=== PATIENT | male | born 1985 | race African-American/Black ===

== ENCOUNTER 2016-11-21 19:53 | Emergency (ER) | payer SELFPAY ==
[~2016-11-21] VITALS: Ht 182.9 cm; Wt 93.0 kg
[2016-11-21] MEDS ORDERED: SULF1TAB23 PO (20:16)
[2016-11-21 20:59] LABS: BILIRUBIN,URINE NEGATIVE (NEG); GLUCOSE,URINE NEGATIVE (NEG); NITRITE,URINE NEGATIVE (NEG); PROTEIN,URINE 100 mg/dL (NEG-TRACE)
[2016-11-21 21:06] LABS: BACTERIA,URINE 0 /HPF (0-FEW); RBC,URINE TNTC /HPF (0-2); SQUAMOUS EPITHELIAL CELL,UR FEW /LPF; WBC,URINE TNTC /HPF (0-4)
--- NOTE | 2016-11-21 21:26 | PHYS DOC ---
Past Medical History Past Medical History: UTI, Other Additional Past Medical Histor: STD Past Surgical History: No Surgical History Alcohol Use: None Drug Use: None Adult General Chief Complaint Chief Complaint: PAIN ON URINATION HPI HPI Patient is a 31 year old male who presents emergency Department today with complaint of suprapubic pain, dysuria and hematuria that began last week. Patient states that initially began experiencing dysuria with blood at the end of his urination. He states that he went to the local clinic and was evaluated for STDs and had a urinalysis performed. It is not known if there was a microscopic analysis done. He states that he was negative for an STD evaluation. He was diagnosed with a urinary tract infection and placed on Bactrim. Patient is currently on day 5 of his Bactrim and reports that he has persistently been experiencing increasing hematuria and dysuria. He denies flank pain or testicular pain or swelling. He denies any history of neurologic disorders or procedures performed. He states he is a nonsmoker. He denies fevers , chills, night sweats or unexplained loss of weight. He states he is a nonsmoker. He has no personal history of cancer. Review of Systems Review of Systems Constitutional: Denies fever or chills [] Eyes: Denies change in visual acuity, redness, or eye pain [] HENT: Denies nasal congestion or sore throat [] Respiratory: Denies cough or shortness of breath [] Cardiovascular: No additional information not addressed in HPI [] GI: Denies abdominal pain, nausea, vomiting, bloody stools or diarrhea [] : Denies dysuria or hematuria [] Musculoskeletal: Denies back pain or joint pain [] Integument: Denies rash or skin lesions [] Neurologic: Denies headache, focal weakness or sensory changes [] Endocrine: Denies polyuria or polydipsia [] Current Medications Current Medications Current Medications Medications (Trade) Dose Ordered Sig/Yamilka Start Time Stop Time Status Last Admin Dose Admin Ketorolac Tromethamine (Toradol) 30 mg 1X ONCE 11/21/16 22:00 11/21/16 22:01 DC 11/21/16 21:45 30 MG Sodium Chloride (Iv Sodium Chloride 0.9% 1000ml Bag) 1,000 ml @ 1,000 mls/hr Q1H 11/21/16 22:00 11/21/16 22:59 11/21/16 21:45 1,000 MLS/HR Allergies Allergies Allergies Coded Allergies Type Severity Reaction Last Updated Verified No Known Drug Allergies 11/21/16 No Physical Exam Physical Exam Constitutional: Well developed, well nourished,mild distress, non-toxic appearance. Patient cries out in pain when attempting to urinate. Patient did produce urine which was blood orange in color. There were small blood clots in the urine. HENT: Normocephalic, atraumatic, bilateral external ears normal, oropharynx moist, no oral exudates, nose normal. [] Eyes: PERRLA, EOMI, conjunctiva normal, no discharge. [] Neck: Normal range of motion, no tenderness, supple, no stridor. [] Cardiovascular:Heart rate regular rhythm, no murmur [] Lungs & Thorax: Bilateral breath sounds clear to auscultation [] Abdomen: Bowel sounds normal, soft, no masses, no pulsatile masses. Patient complains of mild suprapubic tenderness upon palpation. Skin: Warm, dry, no erythema, no rash. [] Back: No tenderness, no CVA tenderness. Extremities: No tenderness, no cyanosis, no clubbing, ROM intact, no edema. [] Neurologic: Alert and oriented X 3, normal motor function, normal sensory function, no focal deficits noted. [] Psychologic: Affect normal, judgement normal, mood normal. [] Current Patient Data Vital Signs Vital Signs Date Time Temp Pulse Resp B/P Pulse Ox O2 Delivery O2 Flow Rate FiO2 11/21/16 20:16 98.2 76 20 96 Room Air 98.2 Lab Values Laboratory Tests Test 11/21/16 20:50 11/21/16 21:37 Urine Collection Type Unknown Urine Color Red Urine Clarity Cloudy Urine pH 6.0 Urine Specific Robbins >=1.030 Urine Protein 100mg/dL (NEG-TRACE) Urine Glucose (UA) Negativemg/dL (NEG) Urine Ketones (Stick) Tracemg/dL (NEG) Urine Blood Large (NEG) Urine Nitrite Negative (NEG) Urine Bilirubin Negative (NEG) Urine Urobilinogen Dipstick 1.0mg/dL (0.2 mg/dL) Urine Leukocyte Esterase Large (NEG) Urine RBC Tntc/HPF (0-2) Urine WBC Tntc/HPF (0-4) Urine Squamous Epithelial Cells Few/LPF Urine Bacteria 0/HPF (0-FEW) Urine Mucus Mod/LPF White Blood Count 7.5x10^3/uL (4.0-11.0) Red Blood Count 5.28x10^6/uL (4.30-5.70) Hemoglobin 16.1g/dL (13.0-17.5) Hematocrit 48.2% (39.0-53.0) Mean Corpuscular Volume 91fL (79-100) Mean Corpuscular Hemoglobin 30pg (25-35) Mean Corpuscular Hemoglobin Concent 33g/dL (31-37) Red Cell Distribution Width 15.0% (11.5-14.5) H Platelet Count 198x10^3/uL (140-400) Neutrophils (%) (Auto) 32% (31-73) Lymphocytes (%) (Auto) 54% (24-48) H Monocytes (%) (Auto) 10% (0-9) H Eosinophils (%) (Auto) 3% (0-3) Basophils (%) (Auto) 1% (0-3) Neutrophils # (Auto) 2.4x10^3uL (1.8-7.7) Lymphocytes # (Auto) 4.0x10^3/uL (1.0-4.8) Monocytes # (Auto) 0.8x10^3/uL (0.0-1.1) Eosinophils # (Auto) 0.2x10^3/uL (0.0-0.7) Basophils # (Auto) 0.1x10^3/uL (0.0-0.2) Prothrombin Time 12.7SEC (11.7-14.0) Prothrombin Time INR 1.0 (0.8-1.1) Sodium Level 139mmol/L (136-145) Potassium Level 4.2mmol/L (3.5-5.1) Chloride Level 102mmol/L (98-107) Carbon Dioxide Level 29mmol/L (21-32) Anion Gap 8 (6-14) Blood Urea Nitrogen 18mg/dL (8-26) Creatinine 1.3mg/dL (0.7-1.3) Estimated GFR (Cockcroft-Gault) 77.9 BUN/Creatinine Ratio 14 (6-20) Glucose Level 88mg/dL (70-99) Calcium Level 9.6mg/dL (8.5-10.1) Total Bilirubin 0.3mg/dL (0.2-1.0) Aspartate Amino Transferase (AST) 19U/L (15-37) Alanine Aminotransferase (ALT) 25U/L (16-63) Alkaline Phosphatase 86U/L (46-116) Total Protein 8.0g/dL (6.4-8.2) Albumin 4.0g/dL (3.4-5.0) Albumin/Globulin Ratio 1.0 (1.0-1.7) Laboratory Tests 11/21/16 21:37 Laboratory Tests 11/21/16 21:37 EKG EKG [] Radiology/Procedures Radiology/Procedures [facility] [address] [place], [place] [id number] IMAGING REPORT Signed PATIENT: ANN NICHOLS ACCOUNT: [id number] : 1985 LOCATION: ER AGE: 31 SEX: M EXAM STATUS: REG ER ORD. PHYSICIAN: EDINSON MCRAE REASON: dysuria, hematuria, suprapubic pain PROCEDURE: ABDOMEN PELVIS WO CONTRAST INDICATION: 31-year-old male with hematuria and dysuria for 5 days, suprapubic pain. COMPARISON: None TECHNIQUE: Axial CT images obtained through the abdomen and pelvis without the use of intravenous contrast. Coronal and sagittal reformats are provided. One or more of the following individualized dose reduction techniques were utilized for this examination: 1. Automated exposure control; 2. Adjustment of the mA and/or kV according to patient size; 3. Use of iterative reconstruction technique. FINDINGS: Visualized lung bases appear clear. Detailed evaluation of intra-abdominal and pelvic organs and vascular structures is limited secondary to lack of IV contrast. Within this limitation, the liver, spleen, gallbladder, pancreas, adrenal glands and bilateral kidneys demonstrate no focal abnormality. No urolithiasis, hydronephrosis or hydroureter is seen. The GI tract demonstrates no dilated bowel loops to suggest obstruction. Appendix is normal in caliber and air-filled. The urinary bladder is mostly decompressed and not well evaluated. No intra-abdominal or pelvic free fluid, free air or significant lymphadenopathy is seen. A 4 millimeter calculus is present overlying the prostate just to the left of midline, likely representing a prostatic calcification rather than a calculus within the prostatic urethra. The aorta is normal in caliber. Visualized osseous structures and overlying soft tissues demonstrate no acute or suspicious finding. IMPRESSION: No acute intra-abdominal or pelvic process seen on this noncontrast study. Electronically signed by: Zakia Haas (Nov 21, 2016 22:37:20) Course & Med Decision Making Course & Med Decision Making Patient's had an uncomplicated stay here in the emergency department. I discussed with him and CT scan findings as well as laboratory test results. Patient verbalizes understanding of this. Patient verbalizes understanding of any stiff follow-up with a urologist. I will provide him with a urologist phone number. He states he will call in the morning to schedule follow-up appointment. Dragon Disclaimer Dragon Disclaimer This electronic medical record was generated, in whole or in part, using a voice recognition dictation system. Departure Departure Impression: Primary Impression: Cystitis Disposition: HOME, SELF-CARE Condition: IMPROVED Referrals: NO PCP (PCP) ULI BONILLA DO Patient Instructions: Interstitial Cystitis Additional Instructions: 1. The CT scan of your abdomen and pelvis today is normal. As discussed, your kidney function is normal as well. There is no evidence of any blood clotting problems. There is no evidence of bacteria in your urine indicating an infection. 2. Review the discharge instructions provided for self-care and reasons to return to the emergency department. 3. Take the medication as prescribed. 4. Call the urologist phone number listed in the paperwork in the morning to schedule follow-up appointment. Scripts Hydrocodone/Apap 5-325 ([place] 5-325 Tablet)1 Each Tablet1 Tab PO PRN Q6HRS PRN PAIN #10 TAB Ref 0 Prov:EDINSON MCRAE 11/21/16 Phenazopyridine Hcl (Pyridium)200 Mg [id number] Mg PO TID urinary discomfort #9 TAB Prov:EDINSON MCRAE 11/21/16 EDINSON MCRAE Nov 21, 2016 21:26
[2016-11-21 21:50] LABS: BASO # 0.1 x10^3/uL (0.0-0.2); BASO % 1 % (0-3); EOS % 3 % (0-3); HEMATOCRIT 48.2 % (39.0-53.0); HEMOGLOBIN 16.1 g/dL (13.0-17.5); LYMPH % 54 % (24-48); MEAN CORPUSCULAR HEMOGLOBIN 30 pg (25-35); MEAN CORPUSCULAR HGB CONC 33 g/dL (31-37); MEAN CORPUSCULAR VOLUME 91 fL (79-100); MONO % 10 % (0-9); NEUT % 32 % (31-73); PLATELET COUNT 198 x10^3/uL (140-400); RED BLOOD COUNT 5.28 x10^6/uL (4.30-5.70); WHITE BLOOD COUNT 7.5 x10^3/uL (4.0-11.0)
[2016-11-21 21:57] LABS: PROTHROMBIN TIME PATIENT 12.7 SEC (11.7-14.0)
[2016-11-21 21:59] LABS: CALCIUM 9.6 mg/dL (8.5-10.1); CREATININE 1.3 mg/dL (0.7-1.3); GFR 77.9; POTASSIUM 4.2 mmol/L (3.5-5.1)
[2016-11-21] MEDS ORDERED: KETOROLAC TROMETHAMINE 30 MG/ML SYRINGE. IV ONE (22:00)
[2016-11-21] MEDS ORDERED: IV NORMAL SALINE 1000ML BAG 1,000 ML IV SCH (22:00)
[2016-11-21 22:05] LABS: TOTAL BILIRUBIN 0.3 mg/dL (0.2-1.0)
--- NOTE | 2016-11-21 22:39 | RAD ---
INDICATION: 31-year-old male with hematuria and dysuria for 5 days, suprapubic pain. COMPARISON: None TECHNIQUE: Axial CT images obtained through the abdomen and pelvis without the use of intravenous contrast. Coronal and sagittal reformats are provided. One or more of the following individualized dose reduction techniques were utilized for this examination: 1. Automated exposure control; 2. Adjustment of the mA and/or kV according to patient size; 3. Use of iterative reconstruction technique. FINDINGS: Visualized lung bases appear clear. Detailed evaluation of intra-abdominal and pelvic organs and vascular structures is limited secondary to lack of IV contrast. Within this limitation, the liver, spleen, gallbladder, pancreas, adrenal glands and bilateral kidneys demonstrate no focal abnormality. No urolithiasis, hydronephrosis or hydroureter is seen. The GI tract demonstrates no dilated bowel loops to suggest obstruction. Appendix is normal in caliber and air-filled. The urinary bladder is mostly decompressed and not well evaluated. No intra-abdominal or pelvic free fluid, free air or significant lymphadenopathy is seen. A 4 millimeter calculus is present overlying the prostate just to the left of midline, likely representing a prostatic calcification rather than a calculus within the prostatic urethra. The aorta is normal in caliber. Visualized osseous structures and overlying soft tissues demonstrate no acute or suspicious finding. IMPRESSION: No acute intra-abdominal or pelvic process seen on this noncontrast study. Electronically signed by: Zakia Haas (Nov 21, 2016 22:37:20)
[2016-11-21] MEDS ORDERED: PHEN-318 PO (22:54)
[2016-11-21] MEDS ORDERED: HYDR-971 PO (22:54)
[2016-11-21 23:00] VITALS: BP 152/78
== END 2016-11-21 23:03 | disposition home or self-care (01) ==
LOC: ER 19:53
DX: N30.90 Cystitis, unspecified without hematuria (principal); Z87.440 Personal history of urinary (tract) infections
CPT/HCPCS: 36415; 74176; 80053; 81001; 85027; 85610; 87086; 87491; 87591; 96361; 96374; 99285; J1885; J7030

== ENCOUNTER 2017-06-08 21:11 | Emergency (ER) | payer SELFPAY ==
[~2017-06-08 21:11] MED LIST: HYDR-971 PO; PHEN-318 PO; SULF1TAB23 PO
[2017-06-08 21:12] VITALS: BP 143/80
--- NOTE | 2017-06-08 21:32 | PHYS DOC ---
Past Medical History Past Medical History: UTI, Other Additional Past Medical Histor: STD Past Surgical History: No Surgical History Alcohol Use: None Drug Use: None Adult General Chief Complaint Chief Complaint: URINARY FREQUENCY HPI HPI Patient is a 32 year old male presents to the emergency department for "a urine check". Patient reports no urinary symptoms. He does state he is sexually active with multiple partners but has no dysuria, no discharge from the urethra , no testicular pain. Review of Systems Review of Systems Constitutional: Denies fever or chills [] Eyes: Denies change in visual acuity, redness, or eye pain [] HENT: Denies nasal congestion or sore throat [] Respiratory: Denies cough or shortness of breath [] Cardiovascular: No additional information not addressed in HPI [] GI: Denies abdominal pain, nausea, vomiting, bloody stools or diarrhea [] : Denies dysuria or hematuria [] Musculoskeletal: Denies back pain or joint pain [] Integument: Denies rash or skin lesions [] Neurologic: Denies headache, focal weakness or sensory changes [] Endocrine: Denies polyuria or polydipsia [] Allergies Allergies Allergies Coded Allergies Type Severity Reaction Last Updated Verified No Known Drug Allergies 11/21/16 No Physical Exam Physical Exam Constitutional: Well developed, well nourished, no acute distress, non-toxic appearance. [] HENT: Normocephalic, atraumatic, bilateral external ears normal, oropharynx moist, no oral exudates, nose normal. [] Eyes: PERRLA, EOMI, conjunctiva normal, no discharge. [] Neck: Normal range of motion, no tenderness, supple, no stridor. [] Cardiovascular:Heart rate regular rhythm, no murmur [] Lungs & Thorax: Bilateral breath sounds clear to auscultation [] Abdomen: Bowel sounds normal, soft, no tenderness, no masses, no pulsatile masses. : deferred[] Skin: Warm, dry, no erythema, no rash. [] Back: No tenderness, no CVA tenderness. [] Extremities: No tenderness, no cyanosis, no clubbing, ROM intact, no edema. [] Neurologic: Alert and oriented X 3, normal motor function, normal sensory function, no focal deficits noted. [] Psychologic: Affect normal, judgement normal, mood normal. [] Current Patient Data Vital Signs Vital Signs Date Time Temp Pulse Resp B/P (MAP) Pulse Ox O2 Delivery O2 Flow Rate FiO2 06/08/17 21:12 98.5 75 20 98 Room Air 98.5 Lab Values Laboratory Tests Test 06/08/17 21:40 Urine Collection Type Unknown Urine Color Yellow Urine Clarity Clear Urine pH 6.0 Urine Specific Murray 1.025 Urine Protein Negative mg/dL (NEG-TRACE) Urine Glucose (UA) Negative mg/dL (NEG) Urine Ketones (Stick) Negative mg/dL (NEG) Urine Blood Negative (NEG) Urine Nitrite Negative (NEG) Urine Bilirubin Negative (NEG) Urine Urobilinogen Dipstick 0.2 mg/dL (0.2 mg/dL) Urine Leukocyte Esterase Negative (NEG) Urine RBC Occ /HPF (0-2) Urine WBC 5-10 /HPF (0-4) Urine Squamous Epithelial Cells Few /LPF Urine Amorphous Sediment Present /HPF Urine Bacteria 0 /HPF (0-FEW) Urine Mucus Mod /LPF EKG EKG [] Radiology/Procedures Radiology/Procedures [] Course & Med Decision Making Course & Med Decision Making Pertinent Labs and Imaging studies reviewed. (See chart for details) []UA with moderate leukocytes. Patient concerned about having an STD although he is asymptomatic. Urine GC and chlamydia pending. At this time patient will be prescribed Suprax, Zithromax, Flagyl because of his risky sexual behavior. Dragon Disclaimer Dragon Disclaimer This electronic medical record was generated, in whole or in part, using a voice recognition dictation system. Departure Departure Impression: Primary Impression: Cystitis Additional Impression: Risky sexual behavior Disposition: 01 HOME, SELF-CARE Condition: STABLE Referrals: NO PCP (PCP) [facility] Patient Instructions: Sexually Transmitted Disease, [id number] Scripts Azithromycin (ZITHROMAX) 500 Mg Tablet 2 TAB PO ONCE, #2 TAB Prov: GONZALEZ REEVES [employer] P[employer]ER 06/08/17 Metronidazole (FLAGYL) 500 Mg Tablet 4 TAB PO now, #4 TAB Prov: GONZALEZ REEVES [employer] 06/08/17 Cefixime (SUPRAX) 200 Mg/5 Ml Susp.recon 200 MG PO now, #1 MISC Prov: GONZALEZ REEVES [employer] 06/08/17 Problem Qualifiers GONZALEZ REEVES [employer] PICKER Jun 08, 2017 21:32
[2017-06-08 21:48] LABS: BILIRUBIN,URINE NEGATIVE (NEG); GLUCOSE,URINE NEGATIVE (NEG); NITRITE,URINE NEGATIVE (NEG); PROTEIN,URINE NEGATIVE (NEG-TRACE); UROBILINOGEN,URINE 0.2 mg/dL (0.2 mg/dL)
[2017-06-08 21:56] LABS: BACTERIA,URINE 0 /HPF (0-FEW); RBC,URINE OCC /HPF (0-2); SQUAMOUS EPITHELIAL CELL,UR FEW /LPF
[2017-06-08] MEDS ORDERED: AZIT500T PO (22:16)
[2017-06-08] MEDS ORDERED: METR500T PO (22:16)
[2017-06-08] MEDS ORDERED: CEFI200S PO (22:16)
== END 2017-06-08 22:44 | disposition home or self-care (01) ==
LOC: ER 21:11
DX: N30.90 Cystitis, unspecified without hematuria (principal)
CPT/HCPCS: 81001; 87086; 87491; 87591; 99284

== ENCOUNTER 2017-08-31 10:50 | Emergency (ER) | payer SELFPAY ==
[~2017-08-31] VITALS: Ht 185.4 cm; Wt 95.3 kg
[~2017-08-31 10:50] MED LIST changes: +AZIT500T PO; +CEFI200S PO; +METR500T PO
[2017-08-31 10:55] VITALS: BP 131/77
[2017-08-31 11:34] LABS: BILIRUBIN,URINE NEGATIVE (NEG); GLUCOSE,URINE NEGATIVE (NEG); NITRITE,URINE NEGATIVE (NEG); PROTEIN,URINE NEGATIVE (NEG-TRACE); UROBILINOGEN,URINE 0.2 mg/dL (0.2 mg/dL)
[2017-08-31 11:54] LABS: BACTERIA,URINE 0 /HPF (0-FEW); RBC,URINE 0 /HPF (0-2); SQUAMOUS EPITHELIAL CELL,UR FEW /LPF; WBC,URINE 0 /HPF (0-4)
--- NOTE | 2017-08-31 16:26 | PHYS DOC ---
Past Medical History Past Medical History: UTI, Other Additional Past Medical Histor: STD Past Surgical History: No Surgical History Alcohol Use: None Drug Use: None Adult General Chief Complaint Chief Complaint: PAIN ON URINATION [facility] Patient is a 32 year old male who presents with an uncomfortable sensation when he urinates. The patient says he does not have pain with urination, frequency or urgency. He says it just feels funny. He said he really can't describe the sensation but states that at times it feels pleasurable. He denies high risk sexual behaviors although he states that he could have been exposed to an STD. He denies any rashes, discharge, sores or pain. He was seen at [facility] a month or so ago for the same symptoms where he was treated with antibiotics and discharged. Review of Systems Review of Systems Constitutional: Denies fever or chills [] Respiratory: Denies cough or shortness of breath [] Cardiovascular: No additional information not addressed in [facility] [] GI: Denies abdominal pain, nausea, vomiting, bloody stools or diarrhea [] : See history of present illness Musculoskeletal: Denies back pain or joint pain [] Integument: Denies rash or skin lesions [] Neurologic: Denies headache, focal weakness or sensory changes [] Endocrine: Denies polyuria or polydipsia [] All other systems were reviewed and found to be within normal limits, except as documented in this note. Allergies Allergies Allergies Coded Allergies Type Severity Reaction Last Updated Verified No Known Drug Allergies 11/21/16 No Physical Exam Physical Exam Constitutional: Well developed, well nourished, no acute distress, non-toxic appearance. [] Cardiovascular:Heart rate regular rhythm, no murmur [] Lungs & Thorax: Bilateral breath sounds clear to auscultation [] Abdomen: Bowel sounds normal, soft, no tenderness, no masses, no pulsatile masses. [] Skin: Warm, dry, no erythema, no rash. [] Back: No tenderness, no CVA tenderness. [] Extremities: No tenderness, no cyanosis, no clubbing, ROM intact, no edema. [] Neurologic: Alert and oriented X 3, normal motor function, normal sensory function, no focal deficits noted. [] Psychologic: Affect normal, judgement normal, mood normal. [] Current Patient Data Vital Signs Vital Signs Date Time Temp Pulse Resp B/P (MAP) Pulse Ox O2 Delivery O2 Flow Rate FiO2 08/31/17 10:55 98.3 64 16 96 Room Air 98.3 Lab Values Laboratory Tests Test 08/31/17 11:00 Urine Collection Type Unknown Urine Color Yellow Urine Clarity Clear Urine pH 7.0 Urine Specific Randall 1.020 Urine Protein Negative mg/dL (NEG-TRACE) Urine Glucose (UA) Negative mg/dL (NEG) Urine Ketones (Stick) Negative mg/dL (NEG) Urine Blood Negative (NEG) Urine Nitrite Negative (NEG) Urine Bilirubin Negative (NEG) Urine Urobilinogen Dipstick 0.2 mg/dL (0.2 mg/dL) Urine Leukocyte Esterase Negative (NEG) Urine RBC 0 /HPF (0-2) Urine WBC 0 /HPF (0-4) Urine Squamous Epithelial Cells Few /LPF Urine Bacteria 0 /HPF (0-FEW) Urine Mucus Mod /LPF EKG EKG [] Radiology/Procedures Radiology/Procedures [] Course & Med Decision Making Course & Med Decision Making Pertinent Labs and Imaging studies reviewed. (See chart for details) []1. Concern for STD exposure The patient's urine was free of bacteria. The patient is being tested for gonorrhea and chlamydia and we will call with the results of those tests when they come back. I declined to place the patient on antibiotics given his recent antibiotic use. He was encouraged to contact his PCP for further evaluation and referral to a urologist for further investigation of his symptoms. Dragon Disclaimer Dragon Disclaimer This electronic medical record was generated, in whole or in part, using a voice recognition dictation system. Departure Departure Impression: Primary Impression: Concern about STD in male without diagnosis Disposition: HOME, SELF-CARE Condition: STABLE Patient Instructions: Safe Sex Additional Instructions: If you continue to have an abnormal feeling with urination please follow-up with your primary care provider for referral to urology. We will call with results of your STD screening when those return in 2-3 days. JOSE ANTONIO MONSON APRN Aug 31, 2017 16:26
== END 2017-08-31 12:32 | disposition home or self-care (01) ==
LOC: ER 10:50
DX: Z11.3 Encounter for screening for infections with a predominantly sexual mode of transmission (principal); Z87.440 Personal history of urinary (tract) infections
CPT/HCPCS: 81001; 87491; 87591; 99284

== ENCOUNTER 2018-12-14 11:13 | Emergency (ER) | payer SELFPAY ==
[~2018-12-14] VITALS: Ht 182.9 cm; Wt 95.3 kg
[~2018-12-14 11:13] MED LIST changes: +HYDR-3164 PO; -HYDR-971 PO
[2018-12-14 11:26] VITALS: BP 150/106
--- NOTE | 2018-12-14 11:39 | PHYS DOC ---
Past Medical History Past Medical History: UTI, Other Additional Past Medical Histor: STD Past Surgical History: No Surgical History Alcohol Use: None Drug Use: None Adult General Chief Complaint Chief Complaint: MALE UROGENITAL PROBLEMS HPI HPI Patient is a 33 year old male with previous history of STDs who presents to the ED today complaining of irritation at the end of urination for the last 2 weeks. Patient denies any hematuria. Denies any urgency or frequency. He states he stopped at the clinic today to be checked out, he states he was told they will not have results for STD today hence he left the facility an came to the ED. He is requesting we do a STD check now and give him results. Patient was informed the gonorrhea and chlamydia are send outs and he will not get results today. He states he has been seen in the ED multiple times with similar symptoms and can not afford to f/u with urologist. Review of Systems Review of Systems Constitutional: Denies fever or chills [] Eyes: Denies change in visual acuity, redness, or eye pain [] HENT: Denies nasal congestion or sore throat [] Respiratory: Denies cough or shortness of breath [] Cardiovascular: No additional information not addressed in HPI [] GI: Denies abdominal pain, nausea, vomiting, bloody stools or diarrhea [] : Reports penile irritation during voiding. Denies dysuria or hematuria [] Musculoskeletal: Denies back pain or joint pain [] Integument: Denies rash or skin lesions [] Neurologic: Denies headache, focal weakness or sensory changes [] All other systems were reviewed and found to be within normal limits, except as documented in this note. Current Medications Current Medications Current Medications Medications (Trade) Dose Ordered Sig/Yamilka Start Time Stop Time Status Last Admin Dose Admin Azithromycin (Zithromax) 1,000 mg 1X ONCE 12/14/18 12:45 12/14/18 12:46 DC Ceftriaxone Sodium (Rocephin Im) 250 mg 1X ONCE 12/14/18 12:45 12/14/18 12:46 DC Doxycycline Hyclate (Vibra-Tab) 100 mg 1X ONCE 12/14/18 12:45 12/14/18 12:46 DC Allergies Allergies Allergies Coded Allergies Type Severity Reaction Last Updated Verified No Known Drug Allergies 11/21/16 No Physical Exam Physical Exam Constitutional: Well developed, well nourished, no acute distress, non-toxic appearance. [] HENT: Normocephalic, atraumatic, bilateral external ears normal, oropharynx moist, no oral exudates, nose normal. [] Eyes: PERRLA, EOMI, conjunctiva normal, no discharge. [] Neck: Normal range of motion, no tenderness, supple, no stridor. [] Cardiovascular:Heart rate regular rhythm, no murmur [] Lungs & Thorax: Bilateral breath sounds clear to auscultation [] Abdomen: Bowel sounds normal, soft, no tenderness, no masses, no pulsatile masses. [] Male - declined Skin: Warm, dry, no erythema, no rash. [] Back: No tenderness, no CVA tenderness. [] Extremities: No tenderness, no cyanosis, no clubbing, ROM intact, no edema. [] Neurologic: Alert and oriented X 3, normal motor function, normal sensory function, no focal deficits noted. [] Psychologic: Affect normal, judgement normal, mood normal. [] Current Patient Data Vital Signs Vital Signs Date Time Temp Pulse Resp B/P (MAP) Pulse Ox O2 Delivery O2 Flow Rate FiO2 12/14/18 11:26 98.1 72 16 150/106 (121) 99 Room Air 98.1 Lab Values Laboratory Tests Test 12/14/18 11:20 Urine Collection Type Clean catch Urine Color Yellow Urine Clarity Clear Urine pH 6.0 Urine Specific [place] 1.015 Urine Protein Negative mg/dL (NEG-TRACE) Urine Glucose (UA) Negative mg/dL (NEG) Urine Ketones (Stick) Negative mg/dL (NEG) Urine Blood Negative (NEG) Urine Nitrite Negative (NEG) Urine Bilirubin Negative (NEG) Urine Urobilinogen Dipstick 0.2 mg/dL (0.2 mg/dL) Urine Leukocyte Esterase Trace (NEG) Urine RBC Occ /HPF (0-2) Urine WBC 5-10 /HPF (0-4) Urine Squamous Epithelial Cells Few /LPF Urine Bacteria Few /HPF (0-FEW) Urine Mucus Marked /LPF Urine Opiates Screen Neg (NEG) Urine Methadone Screen Neg (NEG) Urine Barbiturates Neg (NEG) Urine Phencyclidine Screen Neg (NEG) Urine Amphetamine/Methamphetamine Neg (NEG) Urine Benzodiazepines Screen Neg (NEG) Urine Cocaine Screen Neg (NEG) Urine Cannabinoids Screen Neg (NEG) Urine Ethyl Alcohol Neg (NEG) EKG EKG [] Radiology/Procedures Radiology/Procedures [] Course & Med Decision Making Course & Med Decision Making Pertinent Labs and Imaging studies reviewed. (See chart for details) This is a 33-year-old male patient presenting to the ED today complaining of penile irritation when he is voiding that has been going on for 2 weeks. Patient denies any concerns for STDs though he has been documented previously as having multiple partners. He has been treated for STDs multiple times in the ED Urine positive for trace amount of leukocytes WBC 5-10. Patient got aggressive when we informed him we do not have gonorrhea and chlamydia results. He states he went to another facility before coming to us and they could not give him results and either. Informed patient gonorrhea and chlamydia test are send outs and we do not have results now. Informed patient will get results in the next 3 days only if they're positive. He now states he wants to be treated. Informed patient we can treat him in the ED and Encouraged patient the need to use protection at all times and have his partners get treated. Informed patient has been seen in the ED multiple times for STD concern and I request he follows up with the health department as well as a urologist. He states he will never see a urologist because they want $250 from him and he does not have the money or medical insurance. Patient was given azithromycin and Rocephin in the ED. Discharged with doxycycline. Dragon Disclaimer Dragon Disclaimer This electronic medical record was generated, in whole or in part, using a voice recognition dictation system. Departure Departure Impression: Primary Impression: Cystitis Disposition: HOME, SELF-CARE Condition: STABLE Referrals: NO PCP (PCP) Also follow up with the health department JOCELIN CARBAJAL MD follow up in 1-2 weeks Patient Instructions: Dysuria-Brief Additional Instructions: You were evaluated in the emergency room, we highly encourage you to continue following up with the health department as well as a urologist. Scripts Doxycycline Monohydrate (DOXYCYCLINE MONOHYDRATE) 100 Mg Capsule 1 CAP PO BID, #14 CAP Prov: LEOBARDOSARAYEZEQUIEL APRN 12/14/18 EZEQUIEL COSTELLO APRN Dec 14, 2018 11:39
[2018-12-14 11:44] LABS: BILIRUBIN,URINE NEGATIVE (NEG); CLARITY,URINE CLEAR; COLOR,URINE YELLOW; NITRITE,URINE NEGATIVE (NEG); PROTEIN,URINE NEGATIVE (NEG-TRACE); UROBILINOGEN,URINE 0.2 mg/dL (0.2 mg/dL)
[2018-12-14 11:48] LABS: BARBITURATES NEG (NEG); BENZODIAZEPINES NEG (NEG); CANNABINOIDS NEG (NEG); COCAINE NEG (NEG); METHADONE NEG (NEG); OPIATES NEG (NEG); PHENCYCLIDINE NEG (NEG)
[2018-12-14 11:49] LABS: AMPHETAMINE/METHAMPHETAMINE NEG (NEG)
[2018-12-14 11:52] LABS: BACTERIA,URINE FEW /HPF (0-FEW); SQUAMOUS EPITHELIAL CELL,UR FEW /LPF
[2018-12-14 11:53] LABS: RBC,URINE OCC /HPF (0-2)
[2018-12-14] MEDS ORDERED: AZITHROMYCIN 250 MG TABLET. PO ONE (12:45)
[2018-12-14] MEDS ORDERED: cefTRIAXone IM 250 MG VIAL IM ONE (12:45)
[2018-12-14] MEDS ORDERED: DOXYCYCLINE HYCLATE 100 MG TABLET PO ONE (12:45)
[2018-12-14] MEDS ORDERED: DOXY100C14 PO (12:55)
== END 2018-12-14 13:14 | disposition home or self-care (01) ==
LOC: ER 11:13
DX: N30.90 Cystitis, unspecified without hematuria (principal)
CPT/HCPCS: 80307; 81001; 87086; 87491; 87591; 96372; 99283; J0696; Q0144

== ENCOUNTER 2019-02-08 11:05 | Emergency (ER) | payer SELFPAY ==
[~2019-02-08] VITALS: Ht 185.4 cm; Wt 95.3 kg
[~2019-02-08 11:05] MED LIST changes: +DOXY100C14 PO
[2019-02-08] MEDS ORDERED: CYCLOBENZAPRINE 10 MG TABLET. PO ONE (11:45)
[2019-02-08] MEDS ORDERED: HYDROcodone/APAP 5/325MG 1 TAB TABLET PO ONE (11:45)
--- NOTE | 2019-02-08 12:27 | RAD ---
Exam:Left ribs with PA chest Date: 02/08/2019 11:33 AM Comparison: No prior Indication: Left lateral chest wall pain Findings/ Impression: The heart is not enlarged. Mediastinal and hilar contours are normal. No focal parenchymal airspace opacity. No pleural effusion or pneumothorax. AP, Oblique and Spot images of the left are negative for acute displaced rib fracture. Negative focal pleural elevation. Symmetrical intercostal spacing. It is of note that an acute non-displaced rib fracture can be in-apparent on initial post-trauma imaging. Electronically signed by: Paulie Rincon MD (02/08/2019 12:24 PM) [facility]
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
[2019-02-08 13:10] VITALS: BP 128/82
[2019-02-08] MEDS ORDERED: HYDR-3164 PO (13:12)
[2019-02-08] MEDS ORDERED: ORPH100T PO (13:12)
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
== END 2019-02-08 13:44 | disposition home or self-care (01) ==
LOC: ER 11:05
DX: S20.212A Contusion of left front wall of thorax, initial encounter (principal); M79.602 Pain in left arm; V43.52XA Car driver injured in collision with other type car in traffic accident, initial encounter; Y93.89 Activity, other specified; Y92.410 Unspecified street and highway as the place of occurrence of the external cause; Y99.8 Other external cause status
CPT/HCPCS: 71101; 73060; 99284

== ENCOUNTER 2020-02-25 13:09 | Emergency (ER) | payer SELFPAY ==
[~2020-02-25] VITALS: Ht 185.4 cm; Wt 86.3 kg
[~2020-02-25 13:09] MED LIST changes: +ORPH100T PO
[2020-02-25 13:10] VITALS: BP 137/81
[2020-02-25 13:36] LABS: BILIRUBIN,URINE NEGATIVE (NEG); CLARITY,URINE CLEAR; COLOR,URINE YELLOW; NITRITE,URINE NEGATIVE (NEG); PROTEIN,URINE NEGATIVE (NEG-TRACE); UROBILINOGEN,URINE 0.2 mg/dL (0.2 mg/dL)
[2020-02-25 13:53] LABS: BACTERIA,URINE 0 /HPF (0-FEW); RBC,URINE 0 /HPF (0-2); SQUAMOUS EPITHELIAL CELL,UR FEW /LPF
[2020-02-25] MEDS ORDERED: cefTRIAXone IM 250 MG VIAL IM ONE (14:15)
[2020-02-25] MEDS ORDERED: METR500T PO (14:15)
[2020-02-25] MEDS ORDERED: AZITHROMYCIN 250 MG TABLET. PO ONE (14:15)
--- NOTE | 2020-02-25 14:16 | PHYS DOC ---
Past Medical History Past Medical History: No Pertinent History Additional Past Medical Histor: STD Past Surgical History: No Surgical History Smoking Status: Former Smoker Alcohol Use: None Drug Use: None General Adult EDM: Chief Complaint: PAIN ON URINATION HPI: HPI: Patient is a 35 year old male who presented to ER today for evaluation of burning with urination. Patient is sexually active, he would like to be treated for STD. Patient denies any penile discharge, no fever, no abdominal pain, no nausea vomiting. Review of Systems: Review of Systems: Constitutional: Denies fever or chills. [] Eyes: Denies change in visual acuity. [] HENT: Denies nasal congestion or sore throat. [] Respiratory: Denies cough or shortness of breath. [] Cardiovascular: Denies chest pain or edema. [] GI: Denies abdominal pain, nausea, vomiting, bloody stools or diarrhea. [] : Positive for dysuria Musculoskeletal: Denies back pain or joint pain. [] Integument: Denies rash. [] Neurologic: Denies headache, focal weakness or sensory changes. [] Endocrine: Denies polyuria or polydipsia. [] Lymphatic: Denies swollen glands. [] Psychiatric: Denies depression or anxiety. [] Heart Score: Risk Factors: Risk Factors: DM, Current or recent (<one month) smoker, HTN, HLP, family history of CAD, obesity. Risk Scores: Score 0 - 3: 2.5% MACE over next 6 weeks - Discharge Home Score 4 - 6: 20.3% MACE over next 6 weeks - Admit for Clinical Observation Score 7 - 10: 72.7% MACE over next 6 weeks - Early Invasive Strategies Current Medications: Current Medications Medications (Trade) Dose Ordered Sig/[facility] Start Time Stop Time Status Last Admin Dose Admin Azithromycin (Zithromax) 1,000 mg 1X ONCE 02/25/20 14:15 02/25/20 14:16 Ceftriaxone Sodium (Rocephin Im) 250 mg 1X ONCE 02/25/20 14:15 02/25/20 14:16 Allergies: Allergies: Allergies Coded Allergies Type Severity Reaction Last Updated Verified No Known Drug Allergies 11/21/16 No Physical Exam: PE: Constitutional: Well developed, well nourished, no acute distress, non-toxic appearance. [] HENT: Normocephalic, atraumatic, bilateral external ears normal, nose normal. [] Eyes: PERRLA, EOMI, conjunctiva normal, no discharge. [] Neck: Normal range of motion, no tenderness, supple, no stridor. [] Abdomen: Bowel sounds normal, soft, no tenderness, no masses, no pulsatile masses. [] Skin: Warm, dry, no erythema, no rash. [] Neurologic: Alert and oriented X 3, normal motor function, normal sensory function, no focal deficits noted. [] Psychologic: Affect normal, judgement normal, mood normal. [] Current Patient Data: Labs: Laboratory Tests Test 02/25/20 13:20 Urine Collection Type Unknown Urine Color Yellow Urine Clarity Clear Urine pH 7.0 (<5.0-8.0) Urine Specific [place] 1.020 (1.000-1.030) Urine Protein Negative mg/dL (NEG-TRACE) Urine Glucose (UA) Negative mg/dL (NEG) Urine Ketones (Stick) Negative mg/dL (NEG) Urine Blood Negative (NEG) Urine Nitrite Negative (NEG) Urine Bilirubin Negative (NEG) Urine Urobilinogen Dipstick 0.2 mg/dL (0.2 mg/dL) Urine Leukocyte Esterase Small (NEG) Urine RBC 0 /HPF (0-2) Urine WBC 1-4 /HPF (0-4) Urine Squamous Epithelial Cells Few /LPF Urine Bacteria 0 /HPF (0-FEW) Urine Mucus Mod /LPF Vital Signs: Vital Signs Date Time Temp Pulse Resp B/P (MAP) Pulse Ox O2 Delivery O2 Flow Rate FiO2 02/25/20 13:10 98.3 74 20 137/81 (99) 100 Room Air 98.3 EKG: EKG: [] Radiology/Procedures: Radiology/Procedures: [] Course & Med Decision Making: Course & Med Decision Making Pertinent Labs and Imaging studies reviewed. (See chart for details) [] Dragon Disclaimer: Dragon Disclaimer: This electronic medical record was generated, in whole or in part, using a voice recognition dictation system. Departure Departure Impression: Primary Impression: Possible exposure to STD Additional Impression: Dysuria Disposition: HOME, SELF-CARE Condition: STABLE Referrals: NO PCP (PCP) NO sexual intercourse until your sexual partner being treated for STD as well. Patient Instructions: Dysuria Scripts Metronidazole (FLAGYL) 500 Mg Tablet 1 TAB PO BID, #14 TAB Prov: MONCADA,PETER T DO 02/25/20 Justicifation of Admission Dx: Justifications for Admission: Justification of Admission Dx: N/A ANAT MONCADA DO Feb 25, 2020 14:16
== END 2020-02-25 14:34 | disposition home or self-care (01) ==
LOC: ER 13:09
DX: Z20.2 Contact with and (suspected) exposure to infections with a predominantly sexual mode of transmission (principal); R30.0 Dysuria; Z87.891 Personal history of nicotine dependence
CPT/HCPCS: 81001; 87086; 96372; 99283; J0696

== ENCOUNTER 2020-09-24 15:05 | Emergency (ER) | payer SELFPAY ==
[~2020-09-24] VITALS: Ht 182.9 cm; Wt 91.0 kg
[~2020-09-24 15:05] MED LIST changes: +DOXY-181 PO; -DOXY100C14 PO
[2020-09-24 15:22] VITALS: BP 137/81
[2020-09-24] MEDS ORDERED: AZITHROMYCIN 250 MG TABLET. PO ONE (15:45)
[2020-09-24] MEDS ORDERED: cefTRIAXone IM 250 MG VIAL IM ONE (15:45)
--- NOTE | 2020-09-24 15:54 | ED.ADGEN ---
Past Medical History Past Medical History: No Pertinent History Additional Past Medical Histor: STD Past Surgical History: No Surgical History Smoking Status: Former Smoker Alcohol Use: None Drug Use: None General Adult EDM: Chief Complaint: SEXUALLY TRANSMITTED DISEASE HPI: HPI: Patient is a 35 year old AA male who presents to emergency department requesting to be tested for sexually transmitted infection. He denies any dysuria, abnormal penile discharge, hematuria, increased urinary frequency, abdominal pain, or testicle pain. Patient states he just feels like he has STD and wants to be treated. He currently denies any pain. Review of Systems: Review of Systems: Complete ROS is negative unless otherwise noted in HPI. Current Medications: Current Medications Medications (Trade) Dose Ordered Sig/Yamilka Start Time Stop Time Status Last Admin Dose Admin Azithromycin (Zithromax) 1,000 mg 1X ONCE 09/24/20 15:45 09/24/20 15:46 DC 09/24/20 16:12 1,000 MG Ceftriaxone Sodium (Rocephin Im) 250 mg 1X ONCE 09/24/20 15:45 09/24/20 15:46 DC 09/24/20 16:12 250 MG Allergies: Allergies: Allergies Coded Allergies Type Severity Reaction Last Updated Verified No Known Drug Allergies 11/21/16 No Physical Exam: PE: See Above Constitutional: Well developed, well nourished, no acute distress, non-toxic appearance. [] HENT: Normocephalic, atraumatic, bilateral external ears normal, nose normal. [] Eyes: PERRLA, EOMI, conjunctiva normal, no discharge. [] Neck: Normal range of motion, no stridor. [] Cardiovascular:Heart rate regular rhythm Lungs & Thorax: Respirations even and unlabored, no retractions, no respiratory distress Skin: Warm, dry, no erythema, no rash. [] Extremities: No cyanosis, ROM intact, no edema. [] Neurologic: Alert and oriented X 3, no focal deficits noted. [] Psychologic: Affect normal, judgement normal, mood normal. [] Current Patient Data: Labs: Laboratory Tests Test 09/24/20 15:20 Urine Collection Type Unknown Urine Color Yellow Urine Clarity Clear Urine pH 6.5 (<5.0-8.0) Urine Specific [place] >=1.030 (1.000-1.030) Urine Protein Negative mg/dL (NEG-TRACE) Urine Glucose (UA) Negative mg/dL (NEG) Urine Ketones (Stick) Negative mg/dL (NEG) Urine Blood Negative (NEG) Urine Nitrite Negative (NEG) Urine Bilirubin Negative (NEG) Urine Urobilinogen Dipstick 0.2 mg/dL (0.2 mg/dL) Urine Leukocyte Esterase Negative (NEG) Urine RBC Occ /HPF (0-2) Urine WBC Occ /HPF (0-4) Urine Squamous Epithelial Cells Few /LPF Urine Amorphous Sediment Present /HPF Urine Bacteria 0 /HPF (0-FEW) Urine Mucus Marked /LPF Vital Signs: Vital Signs Date Time Temp Pulse Resp B/P (MAP) Pulse Ox O2 Delivery O2 Flow Rate FiO2 09/24/20 15:22 97.8 74 18 137/81 (99) 98 Room Air 97.8 EKG: EKG: [] Heart Score: Risk Factors: Risk Factors: DM, Current or recent (<one month) smoker, HTN, HLP, family history of CAD, obesity. Risk Scores: Score 0 - 3: 2.5% MACE over next 6 weeks - Discharge Home Score 4 - 6: 20.3% MACE over next 6 weeks - Admit for Clinical Observation Score 7 - 10: 72.7% MACE over next 6 weeks - Early Invasive Strategies Radiology/Procedures: Radiology/Procedures: [] Course & Med Decision Making: Course & Med Decision Making Pertinent Labs and Imaging studies reviewed. (See chart for details) Patient was treated prophylactically with 250 mg of IM Rocephin, and 1 g of PO Zithromax. Patient was instructed to avoid having intercourse until the results of gonorrhea and chlamydia testing are available, patient was notified that these results would not be available for 48 hours. If one or both of these tests is positive, patient needs to refrain from intercourse for approximately 1 week following the treatment of any current partners. [] Dragon Disclaimer: Dragon Disclaimer: This electronic medical record was generated, in whole or in part, using a voice recognition dictation system. Departure Departure Impression: Primary Impression: Contact with and (suspected) exposure to infections with a predominantly sexual mode of transmission Disposition: 01 DC HOME SELF CARE/HOMELESS Condition: STABLE Referrals: NO PCP (PCP) Patient Instructions: Sexually Transmitted Disease, [id number] Additional Instructions: Fill the prescription and use as directed. Recommend that you go to your local health department for comprehensive sexually transmitted disease testing. You have been treated for a suspected gonorrhea and chlamydia. Avoid having intercourse until the results of gonorrhea and chlamydia testing are available, these results will not be available for 48 hours. If one or both of these tests is positive, you need to refrain from intercourse for approximately 1 week following the treatment of any current partners. Follow-up with your primary care doctor if symptoms persist, return to ER symptoms worsen. ARABELLA BARCLAY APRN Sep 24, 2020 15:54
[2020-09-24 15:58] LABS: BILIRUBIN,URINE NEGATIVE (NEG); CLARITY,URINE CLEAR; COLOR,URINE YELLOW; NITRITE,URINE NEGATIVE (NEG); PH,URINE 6.5 (<5.0-8.0); PROTEIN,URINE NEGATIVE (NEG-TRACE); UROBILINOGEN,URINE 0.2 mg/dL (0.2 mg/dL)
[2020-09-24 16:20] LABS: AMORPHOUS SEDIMENT,UR PRESENT /HPF; BACTERIA,URINE 0 /HPF (0-FEW); RBC,URINE OCC /HPF (0-2); WBC,URINE OCC /HPF (0-4)
== END 2020-09-24 16:29 | disposition home or self-care (01) ==
LOC: ER 15:05
DX: A64 Unspecified sexually transmitted disease (principal); Z20.2 Contact with and (suspected) exposure to infections with a predominantly sexual mode of transmission; Z87.891 Personal history of nicotine dependence
CPT/HCPCS: 81001; 87491; 87591; 96372; 99283; J0696

== ENCOUNTER 2021-05-05 12:49 | Emergency (ER) | payer SELFPAY ==
[~2021-05-05] VITALS: Ht 182.9 cm; Wt 108.2 kg
[2021-05-05 13:40] VITALS: BP 178/96
[2021-05-05 14:30] LABS: BILIRUBIN,URINE NEGATIVE (NEG); CLARITY,URINE CLEAR; COLOR,URINE YELLOW; NITRITE,URINE NEGATIVE (NEG); PROTEIN,URINE NEGATIVE (NEG-TRACE); UROBILINOGEN,URINE 0.2 mg/dL (0.2 mg/dL)
[2021-05-05 14:37] LABS: BACTERIA,URINE 0 /HPF (0-FEW); RBC,URINE 0 /HPF (0-2)
[2021-05-05 14:38] LABS: SPERM,URINE PRESENT /HPF
[2021-05-05] MEDS ORDERED: cefTRIAXone IM 500 MG VIAL. IM ONE (17:15)
[2021-05-05] MEDS ORDERED: DOXY100C3 PO (17:20)
--- NOTE | 2021-05-05 17:20 | PHYS DOC ---
Past Medical History Past Medical History: No Pertinent History Additional Past Medical Histor: STD Past Surgical History: No Surgical History Smoking Status: Former Smoker Alcohol Use: None Drug Use: None General Adult EDM: Chief Complaint: SEXUALLY TRANSMITTED DISEASE HPI: HPI: Patient is a 36 year old male presents emergency department complaining of a sexually transmitted disease concern. Patient reports having unprotected sex about a week ago and noticed some increased urination with clear discharge over the past 4 days. Patient denies abdominal pain, nausea, vomiting, diarrhea. Denies rashes or lesions to his penis or genitals. Patient denies testicular pain. Denies any blood in his urine. Patient denies seeing any blood in his semen. Patient denies any other physical complaints or physical concerns. Patient reports having multiple sexual partners, is not certain if any have symptoms similar to his. Review of Systems: Review of Systems: 14 body systems of review of systems have been reviewed. See HPI for pertinent positives and negative responses, otherwise all other systems are negative, nonpertinent or noncontributory. Constitutional: Negative except as outlined in HPI above. Skin: Negative except as outlined in HPI above. Eyes: Negative except as outlined in HPI above. HENT: Negative except as outlined in HPI above. Respiratory: Negative except as outlined in HPI above. Cardiovascular: Negative except as outlined in HPI above. GI: Negative except as outlined in HPI above. : Negative except as outlined in HPI above. Musculoskeletal: Negative except as outlined in HPI above. Integument: Negative except as outlined in HPI above. Neurologic: Negative except as outlined in HPI above. Endocrine: Negative except as outlined in HPI above. Lymphatic: Negative except as outlined in HPI above. Psychiatric: Negative except as outlined in HPI above. Heart Score: C/O Chest Pain: No Risk Factors: Risk Factors: DM, Current or recent (<one month) smoker, HTN, HLP, family history of CAD, obesity. Risk Scores: Score 0 - 3: 2.5% MACE over next 6 weeks - Discharge Home Score 4 - 6: 20.3% MACE over next 6 weeks - Admit for Clinical Observation Score 7 - 10: 72.7% MACE over next 6 weeks - Early Invasive Strategies Allergies: Allergies: Allergies Coded Allergies Type Severity Reaction Last Updated Verified No Known Drug Allergies 05/05/21 No Physical Exam: PE: Constitutional: Well developed, well nourished, no acute distress, non-toxic appearance. 36-year-old male in no apparent distress. HENT: Normocephalic, atraumatic. Eyes: Conjunctiva normal, no discharge. Neck: Normal range of motion, no stridor. Cardiovascular: No cyanosis appreciated, distal cap refill less than 2 seconds. Lungs & Thorax: Patient is in no respiratory distress, no audible adventitious lung sounds appreciated. Abdomen: Nontender, no abnormalities noted. Skin: Warm, dry, no erythema, no rash. Back: No tenderness, no deformities. Extremities: No tenderness, no cyanosis, no clubbing, ROM intact, no edema. Neurologic: Alert and oriented X 3, normal motor function, normal sensory function, no focal deficits noted. Psychologic: Affect normal, judgement normal, mood normal. Current Patient Data: Labs: Laboratory Tests Test 05/05/21 13:25 05/05/21 15:19 Urine Collection Type Unknown Urine Color Yellow Urine Clarity Clear Urine pH 6.0 (<5.0-8.0) Urine Specific Harlan 1.015 (1.000-1.030) Urine Protein Negative mg/dL (NEG-TRACE) Urine Glucose (UA) Negative mg/dL (NEG) Urine Ketones (Stick) Negative mg/dL (NEG) Urine Blood Negative (NEG) Urine Nitrite Negative (NEG) Urine Bilirubin Negative (NEG) Urine Urobilinogen Dipstick 0.2 mg/dL (0.2 mg/dL) Urine Leukocyte Esterase Trace (NEG) Urine RBC 0 /HPF (0-2) Urine WBC 5-10 /HPF (0-4) Urine Squamous Epithelial Cells Few /LPF Urine Bacteria 0 /HPF (0-FEW) Urine Mucus Marked /LPF Urine Sperm Present /HPF Glucose (Fingerstick) 94 mg/dL (70-99) Vital Signs: Vital Signs Date Time Temp Pulse Resp B/P (MAP) Pulse Ox O2 Delivery O2 Flow Rate FiO2 05/05/21 13:40 98.8 73 18 178/96 (99) 99 Room Air 98.8 EKG: EKG: [] Radiology/Procedures: Radiology/Procedures: [] Course & Med Decision Making: Course & Med Decision Making Pertinent Labs and Imaging studies reviewed. (See chart for details) 36-year-old male, vital signs reviewed, presents emergency department concerning STI concerns. Physical examination unremarkable, patient does report increased urination, will obtain fingerstick blood glucose to rule out hyperglycemia. Patient's blood glucose 94. Patient's urine did show leukocyte Estrace otherwise unremarkable. We will treat patient prophylactically for STIs with 500 mg IM Rocephin, prescription home with doxycycline twice daily. Discussed with patient safe sex practices, medication use, side effects of medication, strict follow-up with primary care, patient amenable with ED discharge planning. Discussed with the patient all findings and diagnostic testing as well as the need to follow-up with their primary care provider for further evaluation and treatment or return to the ED if any new or worsening symptoms. Strict return precautions were also discussed at length, the patient voiced understanding and agreement with the discharge planning. The patient was nontoxic in appearance, in no apparent distress, and hemodynamically stable at the time of disposition. Dragon Disclaimer: Dragon Disclaimer: This electronic medical record was generated, in whole or in part, using a voice recognition dictation system. Departure Departure Impression: Primary Impression: STI (sexually transmitted infection) Disposition: HOME / SELF CARE / HOMELESS Condition: GOOD Referrals: NO PCP (PCP) Patient Instructions: Sexually Transmitted Disease Additional Instructions: You were seen today in the emergency department for STI concerns. You had mentioned an increase in urination problem, therefore a blood sugar was obtained to rule out any diabetes problems. Your blood sugar was in normal limits. I have started you on your first dose of Rocephin here in the emergency department, you will need to take doxycycline medication twice a day for the next 7 days. Refrain from sexual activity until complete and until you are symptom-free. Please practice condom barrier sex to help prevent spread of sexually transmitted diseases. Thank you for visiting our Emergency Department. It was a pleasure taking care of you today in the emergency department and we appreciate you trusting us with your care. If any additional problems come up don't hesitate to return to visit us. Please follow up with your primary care provider so they can plan additional care if needed and know about the problem that you had. If symptoms worsen come back to the Emergency Department. Any concerning symptoms that start such as chest pain, shortness of air, weakness or numbness on one side of the body, running high fevers or any other concerning symptoms return to the ER. EMERGENCY DEPARTMENT GENERAL DISCHARGE INSTRUCTIONS Thank you for coming to [facility] Emergency Department (ED) [facility] and trusting us with you care. We trust that you had a positive experience in our Emergency Department. If you wish to speak to the department management, you may call the Director at [phone]. YOUR FOLLOW UP INSTRUCTIONS ARE FOLLOWS: 1. Do you have a private Doctor? If you do not have a private doctor, please ask for a resource list of physicians or clinics that may be able to assist you with follow up care. 2. The Emergency Physicain has interpreted your x-rays. The X-Ray specialist will also review them. If there is a change in the findings, you will be notified in 48 hours when at all possible. 3. A lab test or culture has been done, your results will be reviewed and you will be notified if you need a change in treatment. ADDITIONAL INSTRUCTIONS AND INFORMATION: 1. Your care today has been supervised by a physician who is specially trained in emergency care. Many problems require more than one evaluation for a complete diagnosis and treatment. We recommend that you schedule your follow up appointment as recommended to ensure complete treatment of you illness or injury. If you are unable to obtain follow up care and continue to have a problem, or if your condition worsens, we recommend that you return to the ED. 2. We are not able to safely determine your condition over the phone nor are we able to give sound medical advice over the phone. For these safety reasons, if you call for medical advice we will ask you to come to the ED for further evaluation. 3. If you have any questions regarding these discharge instructions please call the ED at [phone]. SAFETY INFORMATION: In the interest of safety, wellness, and injury prevention; we encourage you to wear your sealbelt, if you smoke; quite smoking, and we encourage family to use a protective helmet for bicycling and other sporting events that present an increased risk for head injury. IF YOUR SYMPTOMS WORSEN OR NEW SYMPTOMS DEVELOP, OR YOU HAVE CONCERNS ABOUT YOUR CONDITION; OR IF YOUR CONDITION WORSENS WHILE YOU ARE WAITING FOR YOUR FOLLOW UP APPOINTMENT; EITHER CONTACT YOUR PRIMARY CARE DOCTOR, THE PHYSICIAN WHOSE NAME AND NUMBER YOU WERE GIVEN, OR RETURN TO THE ED IMMEDIATELY. Scripts Doxycycline Hyclate (DOXYCYCLINE HYCLATE) 100 Mg Capsule 1 CAP PO BID for sti, #14 CAP 0 Refills Prov: JAYASHREE ROY APRN 05/05/21 JAYASHREE ROY APRN May 05, 2021 17:20
== END 2021-05-05 17:34 | disposition home or self-care (01) ==
LOC: ER 12:49
DX: A64 Unspecified sexually transmitted disease (principal)
CPT/HCPCS: 81001; 82962; 87086; 87491; 87591; 96372; 99283; J0696

== ENCOUNTER 2022-01-29 18:18 | Emergency (ER) | payer SELFPAY ==
[~2022-01-29] VITALS: Ht 185.4 cm; Wt 90.0 kg
[~2022-01-29 18:18] MED LIST changes: +DOXY100C3 PO
[2022-01-29 18:30] VITALS: BP 136/68
--- NOTE | 2022-01-29 19:02 | PHYS DOC ---
Past Medical History Past Medical History: No Pertinent History Additional Past Medical Histor: STD Past Surgical History: No Surgical History Smoking Status: Former Smoker Alcohol Use: None Drug Use: None General Adult EDM: Chief Complaint: PAIN ON URINATION HPI: HPI: Patient is a 36 year old male who presents the ED today complaining of penile discharge, dysuria, symptoms have been going on for 4 days. Patient is concerned about STDs and would like to be tested and treated. Review of Systems: Review of Systems: Constitutional: Denies fever or chills. [] GI: Denies abdominal pain, nausea, vomiting, bloody stools or diarrhea. [] : Reports dysuria and penile discharge Musculoskeletal: Denies back pain or joint pain. [] Integument: Denies rash. [] Neurologic: Denies headache, focal weakness or sensory changes. [] Psychiatric: Denies depression or anxiety. [] Heart Score: C/O Chest Pain: N/A Risk Factors: Risk Factors: DM, Current or recent (<one month) smoker, HTN, HLP, family history of CAD, obesity. Risk Scores: Score 0 - 3: 2.5% MACE over next 6 weeks - Discharge Home Score 4 - 6: 20.3% MACE over next 6 weeks - Admit for Clinical Observation Score 7 - 10: 72.7% MACE over next 6 weeks - Early Invasive Strategies Current Medications: Current Medications Medications (Trade) Dose Ordered Sig/Yamilka Start Time Stop Time Status Last Admin Dose Admin Ceftriaxone Sodium (Rocephin Im) 500 mg 1X ONCE 01/29/22 19:15 01/29/22 19:16 Doxycycline Hyclate (Vibra-Tab) 100 mg 1X ONCE 01/29/22 19:15 01/29/22 19:16 Metronidazole (Flagyl) 2,000 mg 1X ONCE 01/29/22 19:15 01/29/22 19:16 Allergies: Allergies: Allergies Coded Allergies Type Severity Reaction Last Updated Verified No Known Drug Allergies 05/05/21 No Physical Exam: PE: Constitutional: Well developed, well nourished, no acute distress, non-toxic appearance. [] Abdomen: Bowel sounds normal, soft, no tenderness, no masses, no pulsatile masses. [] Skin: Warm, dry, no erythema, no rash. [] Back: No tenderness, no CVA tenderness. [] Extremities: No tenderness, no cyanosis, no clubbing, ROM intact, no edema. [] Neurologic: Alert and oriented X 3, normal motor function, normal sensory function, no focal deficits noted. [] Psychologic: Affect normal, judgement normal, mood normal. [] Current Patient Data: Vital Signs: Vital Signs Date Time Temp Pulse Resp B/P (MAP) Pulse Ox O2 Delivery O2 Flow Rate FiO2 01/29/22 18:30 98.0 93 20 136/68 (90) 98 98.0 EKG: EKG: [] Radiology/Procedures: Radiology/Procedures: [] Course & Med Decision Making: Course & Med Decision Making Pertinent Labs and Imaging studies reviewed. (See chart for details) This a 36-year-old male patient presented to the ED today with STD concerns. Patient was given Rocephin, Flagyl and started on doxycycline. Discharged on doxycycline. STD education provided Dragon Disclaimer: Dragon Disclaimer: This electronic medical record was generated, in whole or in part, using a voice recognition dictation system. Departure Departure Impression: Primary Impression: Concern about STD in male without diagnosis Disposition: 01 HOME / SELF CARE / HOMELESS Condition: STABLE Referrals: NO PCP (PCP) follow up with the health department for further STD concerns Patient Instructions: Sexually Transmitted Disease, [id number] Additional Instructions: You were tested and treated for sexually transmitted diseases. Ensure you complete the prescribed antibiotics. Please follow-up with the health department for further STD concerns. Do not have intercourse for a week. Use protection after that. Please let all your partners know you were tested and treated for STDs and asked them to seek treatment too Scripts Doxycycline Hyclate (DOXYCYCLINE HYCLATE) 100 Mg Tablet 1 TAB PO BID, #14 TAB Prov: EZEQUIEL COSTELLO APRN 01/29/22 EZEQUIEL COSTELLO APRN January 29, 2022 19:02
[2022-01-29] MEDS ORDERED: DOXY100T PO (19:10)
[2022-01-29] MEDS ORDERED: DOXYCYCLINE HYCLATE 100 MG TABLET PO ONE (19:15)
[2022-01-29] MEDS ORDERED: cefTRIAXone IM 500 MG VIAL. IM ONE (19:15)
[2022-01-29] MEDS ORDERED: metroNIDAZOLE 500 MG TABLET PO ONE (19:15)
[2022-01-29 19:21] LABS: BACTERIA,URINE 0 /HPF (0-FEW); RBC,URINE 0 /HPF (0-2); WBC,URINE OCC /HPF (0-4)
== END 2022-01-29 19:16 | disposition home or self-care (01) ==
LOC: ER 18:18
DX: R30.0 Dysuria (principal); R36.9 Urethral discharge, unspecified; Z20.2 Contact with and (suspected) exposure to infections with a predominantly sexual mode of transmission; Z87.891 Personal history of nicotine dependence
CPT/HCPCS: 81001; 87491; 87591; 96372; 99283; J0696